=== PATIENT | male | born 1980 | race Two or more races ===

== ENCOUNTER 2016-12-31 05:55 | Emergency (ER) | payer MEDICAID ==
[~2016-12-31] VITALS: Ht 180.3 cm; Wt 81.6 kg
[2016-12-31 06:09] VITALS: BP 152/101
[2016-12-31] MEDS ORDERED: ceFAZolin 1gm/50ml Premix 50 ML IV ONE (06:15)
[2016-12-31] MEDS: Morphine Sulfate 4mg/ml Inj IVP ONE ×2 (06:15→06:35)
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
[2016-12-31 06:56] LABS: BASOPHILS % (AUTO) 0.7 % (0.0-2.0); EOSINOPHILS % (AUTO) 0.1 % (0.0-3.0); LYMPHOCYTES % (AUTO) 11.8 % (20.0-45.0); MEAN CORPUSCULAR HEMOGLOBIN 31.7 PG (27.0-31.0); MEAN CORPUSCULAR HGB CONC 34.5 G/DL (32.0-36.0); MEAN CORPUSCULAR VOLUME 92 FL (80-99); MEAN PLATELET VOLUME 8.5 FL (6.5-10.1); MONOCYTES % (AUTO) 3.8 % (1.0-10.0); NEUTROPHILS % (AUTO) 83.5 % (45.0-75.0); PLATELET COUNT 313 K/UL (150-450); RED BLOOD COUNT 4.98 M/UL (4.70-6.10); RED CELL DISTRIBUTION WIDTH 11.1 % (11.6-14.8)
[2016-12-31 06:58] LABS: ALANINE AMINOTRANSFERASE 19 U/L (3-41); ALBUMIN/GLOBULIN RATIO 1.7 (1.0-2.7); ANION GAP 21 (5-15); ASPARTATE AMINO TRANSFERASE 23 U/L (5-40); CALCIUM 9.4 mg/dL (8.6-10.2); CARBON DIOXIDE 21 mEQ/L (20-30); CHLORIDE 96 mEQ/L (98-107); GLOMERULAR FILTRATION RATE > 60 mL/min (>60); HEMOLYSIS 6; POTASSIUM 3.4 mEQ/L (3.4-4.9); SODIUM 138 mEQ/L (135-145); TOTAL PROTEIN 8.1 g/dL (6.6-8.7)
[2016-12-31] MEDS ORDERED: Morphine Sulfate 2mg/ml Inj IVP ONE (07:30)
[2016-12-31] MEDS ORDERED: ceFAZolin sod 1 GM in NS 55 ML IVPB ONE (08:15)
[2016-12-31] MEDS ORDERED: Ketorolac 30mg Inj IV ONE (08:30)
[2016-12-31] MEDS ORDERED: IBUPROFEN600 MG ORAL (08:37)
[2016-12-31] MEDS ORDERED: KEFLEX500 MG ORAL (08:37)
[2016-12-31 08:54] LABS: MEAN CORPUSCULAR HEMOGLOBIN 31.2 PG (27.0-31.0); MEAN CORPUSCULAR HGB CONC 33.9 G/DL (32.0-36.0); MEAN CORPUSCULAR VOLUME 92 FL (80-99); MEAN PLATELET VOLUME 8.5 FL (6.5-10.1); PLATELET COUNT 244 K/UL (150-450); RED BLOOD COUNT 4.52 M/UL (4.70-6.10); WHITE BLOOD COUNT 17.3 K/UL (4.8-10.8)
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
[2016-12-31 09:22] LABS: BAND NEUTROPHILS % (MANUAL) 0 % (0-8); BASOPHILS % (MANUAL) 0 % (0-2); EOSINOPHILS % (MANUAL) 0 % (0-3); LYMPHOCYTES % (MANUAL) 6 % (20-45); NEUTROPHILS % (MANUAL) 87 % (45-75); PLATELET ESTIMATE ADEQUATE; PLATELET MORPHOLOGY NORMAL; TOTAL CELLS COUNTED 100
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
[2016-12-31 10:00] VITALS: BP 109/70
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
[2016-12-31 12:05] VITALS: BP 145/84
== END 2016-12-31 12:05 | disposition home or self-care (01) ==
LOC: EMR 07:10
DX: S71.102A Unspecified open wound, left thigh, initial encounter (principal); S71.101A Unspecified open wound, right thigh, initial encounter; S00.03XA Contusion of scalp, initial encounter; X93.XXXA Assault by handgun discharge, initial encounter; Y92.410 Unspecified street and highway as the place of occurrence of the external cause; R00.0 Tachycardia, unspecified
CPT/HCPCS: 36415; 70450; 73552; 73706; 80053; 85007; 85025; 85610; 85730; 87070; 87205; 96361; 96365; 96375; 96376; 99284; J0690; J1885; J2270; J2405; Q9967